=== PATIENT | male | born 1985 ===

== ENCOUNTER → 2019-01-06 | Outpatient (REF) | payer OTHER ==
[2019-01-06 13:48] LABS: BLOOD UREA NITROGEN 11 MG/DL (7-18); CREATININE FOR GFR 0.95 MG/DL (0.70-1.30); GLOMERULAR FILTRATION RATE > 60.0 (>60)
== END ==
LOC: M LAB REF 13:03
PROVIDERS: ATTEND Surgery
DX: R55 Syncope and collapse (principal); Z87.820 Personal history of traumatic brain injury